=== PATIENT | female | born 1935 | race Caucasian/White ===

== ENCOUNTER 2018-01-29 04:31 | Inpatient (IN) | payer MEDICARE, OTHER ==
[2018-01-29] VITALS (14 sets, daily range): BP systolic 91–191
[~2018-01-29] VITALS: Ht 167.6 cm; Wt 70.3 kg
[2018-01-29] MEDS ORDERED: CARB-61 PO ×2 (05:05→05:22)
[2018-01-29] MEDS ORDERED: FURO-150 PO (05:05)
[2018-01-29] MEDS ORDERED: ONDA8TAB9 PO ×2 (05:05)
[2018-01-29] MEDS ORDERED: PRED20TA PO (05:05)
[2018-01-29] MEDS ORDERED: MELO15TA13 PO (05:05)
[2018-01-29] MEDS ORDERED: PRAM1.5T4 PO ×2 (05:05→05:22)
[2018-01-29] MEDS ORDERED: ATOR40TA68 PO (05:05)
[2018-01-29] MEDS ORDERED: POTA-80 PO (05:05)
[2018-01-29] MEDS ORDERED: PRO40 PO (05:05)
[2018-01-29] MEDS ORDERED: LACT10SO6 PO (05:05)
[2018-01-29 05:12] LABS: HEMATOCRIT 29.7 % (36-48); HEMOGLOBIN 9.1 g/dL (12.0-16.0); MEAN CORPUSCULAR HEMOGLOBIN 28 pg (27-31); MEAN CORPUSCULAR HGB CONC 31 % (32-36); MEAN CORPUSCULAR VOLUME 92 fL (79.0-98.0); PLATELET COUNT (AUTO) 221 K/uL (130-430); RED BLOOD CELL COUNT(AUTO) 3.22 MIL/uL (4.2-6.2); RED CELL DISTRIBUTION WIDTH 20.3 % (9.0-15.0); WHITE BLOOD COUNT (AUTO) 10.9 K/uL (4.8-10.8)
[2018-01-29 05:15] LABS: ANION GAP 3 (5-15); CALCIUM 8.7 mg/dL (8.4-11.0); CHLORIDE 105 mmol/L (98-107); CREATININE 0.96 mg/dL (0.55-1.30); GLUCOSE 74 mg/dL (70-99); POTASSIUM 4.6 mmol/L (3.5-5.1); SODIUM SERUM 143 mmol/L (136-145); UREA NITROGEN, BLOOD 22 mg/dL (8-21)
[2018-01-29 05:21] LABS: ALANINE AMINOTRANSFERASE 11 U/L (12-78); ALBUMIN 2.1 g/dL (3.4-4.8); ASPARTATE AMINOTRANSFERASE 52 U/L (10-37); TOTAL BILIRUBIN 0.3 mg/dL (0.0-1.0)
[2018-01-29] MEDS ORDERED: SENN8.6T19 PO (05:22)
[2018-01-29] MEDS ORDERED: CALC-995 PO (05:22)
[2018-01-29] MEDS ORDERED: GABA600T PO (05:22)
[2018-01-29] MEDS ORDERED: TRAM50TA2 PO (05:22)
[2018-01-29] MEDS ORDERED: FLUT1DIS5 IH (05:22)
[2018-01-29] MEDS ORDERED: ALBMDI INH ×2 (05:22)
[2018-01-29] MEDS ORDERED: CYM30 PO (05:22)
[2018-01-29] MEDS ORDERED: HYDR-551 PO (05:22)
[2018-01-29] MEDS ORDERED: MOME13HF INH (05:22)
[2018-01-29] MEDS ORDERED: SPIRIVA INH (05:22)
[2018-01-29] MEDS ORDERED: ALBU8.5H8 INH (05:22)
[2018-01-29] MEDS ORDERED: FOLI-43 PO (05:22)
[2018-01-29] MEDS ORDERED: HYDR-4272 PO (05:22)
[2018-01-29] MEDS ORDERED: FUROSEMIDE 40 MG/4 ML VIAL IVP ONE (05:30)
[2018-01-29 05:40] LABS: BAND % (MANUAL) 5 % (0-6)
[2018-01-29 05:41] LABS: ATYPICAL LYMPHOCYTES % 0 % (0-0); BASOPHILS % (MANUAL) 0 % (0-2); EOSINOPHILS % (MANUAL) 1 % (0-7); LYMPHOCYTES % (MANUAL) 20 % (20-46); METAMYELOCYTES % 3 % (0-0); MONOCYTES % (MANUAL) 4 % (0-11); MYELOCYTES % 2 % (0-0)
[2018-01-29] MEDS ORDERED: IOHEXOL 350 mgI/mL, 150 ML INFUS..BTL IV ONE (06:52)
[2018-01-29] MEDS ORDERED: IOHEXOL 100 ML IV ONE (07:02)
[2018-01-29 07:46] LABS: BILIRUBIN,URINE NEGATIVE (NEGATIVE); BLOOD, URINE 1+ (NEGATIVE); CLARITY/URINE CLEAR (CLEAR); COLOR,URINE YELLOW (YELLOW); GLUCOSE,URINE NEGATIVE (NEGATIVE); KETONES,URINE NEGATIVE (NEGATIVE); LEUKOCYTE ESTERASE ,URINE NEGATIVE (NEGATIVE); NITRITE, URINE NEGATIVE (NEGATIVE); PROTEIN URINE NEGATIVE (NEGATIVE); UROBILINOGEN,URINE 0.2 (0.2-1.0)
[2018-01-29] MEDS ORDERED: methylPREDNISolone SOD SUCC/PF 62.5 MG/ML VIAL IVP ONE (08:00)
[2018-01-29] MEDS ORDERED: IPRATROPIUM/ALBUTEROL SULFATE 3 ML AMPUL.NEB (DUONEB) INH ONE (08:00)
[2018-01-29 08:12] LABS: BACTERIA,URINE FEW /HPF (None Seen); MUCUS,URINE None Seen /LPF (None Seen); WBC,URINE 0-3 /HPF (0-3)
[2018-01-29] MEDS ORDERED: cefTRIAXone 1 GM IVPB PREMIX 50 ML IV ONE (09:15)
[2018-01-29] MEDS ORDERED: KCL 20 mEq in D5/0.45NS 1000mL 1,000 ML IV ONE (11:15)
[2018-01-29] MEDS ORDERED: PRAMIPEXOLE DI-HCL 0.25 MG TABLET PO PRN (12:45)
[2018-01-29] MEDS ORDERED: LevALBUTEROL HCL 1.25 MG/0.5 ML *CONC.* VIAL.NEB (XOPENEX CONC.) INH PRN (12:45)
[2018-01-29] MEDS ORDERED: FOLIC ACID 1 MG TABLET PO ONE (12:45)
[2018-01-29] MEDS ORDERED: DULoxetine HCL 30 MG CAPSULE.DR (CYMBALTA) PO ONE (12:45)
[2018-01-29] MEDS ORDERED: traMADol HCL HCL 50 MG TABLET (ULTRAM) PO SCH (12:45)
[2018-01-29] MEDS ORDERED: KCL 20 mEq in D5/0.45NS 1000mL 1,000 ML IV SCH (13:00)
[2018-01-29] MEDS: LevALBUTEROL HCL 1.25 MG/0.5 ML *CONC.* VIAL.NEB (XOPENEX CONC.) INH SCH ×2 (14:38→20:02)
[2018-01-29] MEDS: GABAPENTIN 300 MG CAPSULE PO SCH ×2 (14:43→20:58)
[2018-01-29] MEDS: methylPREDNISolone SOD SUCC/PF 62.5 MG/ML VIAL IVP SCH (18:12)
[2018-01-29] MEDS: PRAMIPEXOLE DI-HCL 0.25 MG TABLET PO SCH (20:58)
[2018-01-29] MEDS ORDERED: ENOXAPARIN SODIUM 40 MG/0.4 ML SYRINGE SUBCUT SCH (21:00)
[2018-01-30] VITALS (17 sets, daily range): BP systolic 108–149
[2018-01-30] MEDS: LevALBUTEROL HCL 1.25 MG/0.5 ML *CONC.* VIAL.NEB (XOPENEX CONC.) INH SCH ×3 (01:04→09:48)
[2018-01-30] MEDS: methylPREDNISolone SOD SUCC/PF 62.5 MG/ML VIAL IVP SCH ×3 (01:29→11:44)
[2018-01-30] MEDS ORDERED: PANTOPRAZOLE SODIUM 40 MG TAB PO SCH (06:00)
[2018-01-30 06:44] LABS: ANION GAP 5 (5-15); CALCIUM 8.1 mg/dL (8.4-11.0); CHLORIDE 103 mmol/L (98-107); CREATININE 0.95 mg/dL (0.55-1.30); GLUCOSE 144 mg/dL (70-99); POTASSIUM 4.5 mmol/L (3.5-5.1); SODIUM SERUM 142 mmol/L (136-145); UREA NITROGEN, BLOOD 21 mg/dL (8-21)
[2018-01-30 06:59] LABS: ALANINE AMINOTRANSFERASE 42 U/L (12-78); ASPARTATE AMINOTRANSFERASE 46 U/L (10-37); TOTAL BILIRUBIN 0.4 mg/dL (0.0-1.0)
[2018-01-30] MEDS: IPRATROPIUM BROM 0.5 MG/2.5 ML VIAL.NEB (ATROVENT) INH SCH ×2 (07:15→14:38)
[2018-01-30 08:34] LABS: EOSINOPHILS % (AUTO) 0.1 % (0.0-4.0); HEMOGLOBIN 8.3 g/dL (12.0-16.0); LYMPHOCYTES # (AUTO) 1.2 K/uL (1.0-5.5); LYMPHOCYTES % (AUTO) 12.6 % (20.5-51.5); MEAN CORPUSCULAR HEMOGLOBIN 29 pg (27-31); MEAN CORPUSCULAR HGB CONC 32 % (32-36); MEAN CORPUSCULAR VOLUME 90 fL (79.0-98.0); MONOCYTES # (AUTO) 0.6 K/uL (0.0-1.0); MONOCYTES % (AUTO) 6.8 % (1.7-9.3); NEUTROPHILS # (AUTO) 7.7 K/uL (1.8-7.7); NEUTROPHILS % (AUTO) 80.5 % (40.0-70.0); PLATELET COUNT (AUTO) 209 K/uL (130-430); RED BLOOD CELL COUNT(AUTO) 2.89 MIL/uL (4.2-6.2); RED CELL DISTRIBUTION WIDTH 19.3 % (9.0-15.0); WHITE BLOOD COUNT (AUTO) 9.5 K/uL (4.8-10.8)
[2018-01-30] MEDS ORDERED: MELOXICAM 7.5 MG TABLET PO SCH (09:00)
[2018-01-30] MEDS ORDERED: POTASSIUM CHLORIDE 20 MEQ TAB.PRT.SR PO SCH (09:00)
[2018-01-30] MEDS ORDERED: ATORVASTATIN 20 MG TABLET PO SCH (09:00)
[2018-01-30] MEDS ORDERED: DULoxetine HCL 30 MG CAPSULE.DR (CYMBALTA) PO SCH (09:00)
[2018-01-30] MEDS ORDERED: FUROSEMIDE 20 MG TABLET PO SCH (09:00)
[2018-01-30] MEDS ORDERED: FOLIC ACID 1 MG TABLET PO SCH (09:00)
[2018-01-30] MEDS: GABAPENTIN 300 MG CAPSULE PO SCH ×2 (09:51→14:51)
[2018-01-30] MEDS: PRAMIPEXOLE DI-HCL 0.25 MG TABLET PO SCH (10:32)
[2018-01-30] MEDS ORDERED: LIDOCAINE VISCOUS 2%, 15 ML UDC MM PRN (14:00)
== END 2018-01-30 16:30 | disposition short-term general hospital (02) | DRG 291 ==
LOC: SED 04:31 → SIC 11:19
PROVIDERS: ADMIT Family Medicine; ATTEND Family Medicine
PROC: 5A09357 Assistance with Respiratory Ventilation, Less than 24 Consecutive Hours, Continuous Positive Airway Pressure (ICD-10-PCS; principal; 2018-01-29)
PROC: 5A09357 Assistance with Respiratory Ventilation, Less than 24 Consecutive Hours, Continuous Positive Airway Pressure (ICD-10-PCS; 2018-01-30)
DX: I50.33 Acute on chronic diastolic (congestive) heart failure (principal); J96.22 Acute and chronic respiratory failure with hypercapnia; J44.1 Chronic obstructive pulmonary disease with (acute) exacerbation; C85.90 Non-Hodgkin lymphoma, unspecified, unspecified site; D64.9 Anemia, unspecified; M19.90 Unspecified osteoarthritis, unspecified site; G20 Parkinson's disease; E04.1 Nontoxic single thyroid nodule; G89.29 Other chronic pain; Z87.891 Personal history of nicotine dependence; Z99.81 Dependence on supplemental oxygen; Z88.0 Allergy status to penicillin
CPT/HCPCS: 36415; 36600; 71045; 71260-TC; 80048; 80053; 81000-TC; 82803-TC; 83605; 83735-TC; 83880; 84484; 85007; 85025; 85027; 85610-TC; 85730-TC; 87040-TC; 87081; 93005; 93306; 93970; 94640; 94660; 96365; 96375; 99285; C1751; J0696; J1650; J1940; J1956; J2001; J2930; J7050; J7612; J7620; Q9967